=== PATIENT | female | born 1955 | race Caucasian/White ===

== ENCOUNTER → 2022-02-09 | Outpatient (CLI) | payer MEDICARE | LOC: M LABSMTC 09:43 | PROVIDERS: ATTEND Anesthesiology | DX: Z01.812 Encounter for preprocedural laboratory examination (principal) ==

== ENCOUNTER 2022-02-14 10:34 | Day surgery (SDC) | payer MEDICARE ==
[~2022-02-14] VITALS: Ht 172.7 cm; Wt 85.3 kg
[~2022-02-14 10:34] MED LIST: NS 1,000 ML IV ONE
[2022-02-14] MEDS ORDERED: propofoL 500 MG/50 ML VIAL As Ordered ONE (10:37)
[2022-02-14] MEDS ORDERED: fentaNYL 100 MCG/2 ML INJECTION As Ordered ONE (11:12)
[2022-02-14] MEDS ORDERED: LIDOCAINE 2% INJ 100 MG/5 ML SYRINGE As Ordered ONE (11:26)
[2022-02-14 12:45] VITALS: BP 118/71
== END 2022-02-14 12:51 | disposition home or self-care (01) ==
LOC: M OPP 10:34
PROVIDERS: ATTEND Internal Medicine Gastroenterology
DX: Z86.010 Personal history of colon polyps (principal); Z80.0 Family history of malignant neoplasm of digestive organs; K63.5 Polyp of colon; K64.8 Other hemorrhoids; K22.89 Other specified disease of esophagus; K29.70 Gastritis, unspecified, without bleeding; R12 Heartburn; Z88.0 Allergy status to penicillin
CPT/HCPCS: 43239; 45385; 88305; J3010

== ENCOUNTER → 2022-09-11 | Outpatient (REF) | payer MEDICARE, OTHER | LOC: M PLALAB 11:49 | PROVIDERS: ATTEND Nurse Practitioner Family | DX: Z12.4 Encounter for screening for malignant neoplasm of cervix (principal) | CPT/HCPCS: 87624; G0123 ==

== ENCOUNTER → 2022-10-04 | Outpatient (CLI) | payer MEDICARE, OTHER ==
[~2022-10-04] MED LIST changes: -NS 1,000 ML IV ONE; +OMEP40CA5 PO
== END ==
LOC: M LABSMTC 09:59
PROVIDERS: ATTEND Anesthesiology
DX: Z01.812 Encounter for preprocedural laboratory examination (principal); Z11.52 Encounter for screening for COVID-19

== ENCOUNTER 2022-10-09 13:34 | Day surgery (SDC) | payer MEDICARE, OTHER ==
[~2022-10-09] VITALS: Ht 172.7 cm; Wt 83.5 kg
[~2022-10-09 13:34] MED LIST changes: +NS 1,000 ML IV ONE
[2022-10-09] MEDS ORDERED: fentaNYL 100 MCG/2 ML INJECTION As Ordered ONE (15:43)
[2022-10-09] MEDS ORDERED: LIDOCAINE 2% 100MG/5ML SDV (FOR ANES.) As Ordered ONE (15:43)
[2022-10-09] MEDS ORDERED: propofoL 200 MG/20 ML VIAL As Ordered ONE (15:43)
[2022-10-09 16:45] VITALS: BP 117/85
== END 2022-10-09 16:50 | disposition home or self-care (01) ==
LOC: M OPP 13:34
PROVIDERS: ATTEND Internal Medicine Gastroenterology
DX: K29.70 Gastritis, unspecified, without bleeding (principal); R10.13 Epigastric pain; Z79.899 Other long term (current) drug therapy; Z80.0 Family history of malignant neoplasm of digestive organs; Z80.3 Family history of malignant neoplasm of breast; Z80.41 Family history of malignant neoplasm of ovary
CPT/HCPCS: 43235; 91035; J3010

== ENCOUNTER → 2023-10-04 | Outpatient (REF) | payer MEDICARE, BC, OTHER ==
[~2023-10-04] MED LIST changes: -NS 1,000 ML IV ONE
== END ==
LOC: M SFHCWAGY 10:29
PROVIDERS: ATTEND Nurse Practitioner Family
DX: Z12.4 Encounter for screening for malignant neoplasm of cervix (principal); N95.2 Postmenopausal atrophic vaginitis